=== PATIENT | male | born 1940 | race Hispanic/Latino ===

== ENCOUNTER → 2019-04-01 | Outpatient (CLI) | payer OTHER ==
[~2019-04-01] MED LIST: IOHEXOL 350 MG/ML 100ML INFUS..BTL IV ONE; IOHEXOL-350 50ML VIAL IV ONE
== END | disposition home or self-care (01) ==
LOC: RAH 07:39
PROVIDERS: ATTEND Internal Medicine Cardiovascular Disease
DX: K80.20 Calculus of gallbladder without cholecystitis without obstruction (principal); N32.89 Other specified disorders of bladder; N40.0 Benign prostatic hyperplasia without lower urinary tract symptoms; I70.201 Unspecified atherosclerosis of native arteries of extremities, right leg
CPT/HCPCS: 75635; Q9967 ×2

== ENCOUNTER → 2019-04-15 | Outpatient (CLI) | payer OTHER | END | disposition home or self-care (01) | LOC: SHCH 09:32 → EDUNIT# 10:00 | PROVIDERS: ATTEND Internal Medicine Cardiovascular Disease | DX: I34.0 Nonrheumatic mitral (valve) insufficiency (principal); I25.10 Atherosclerotic heart disease of native coronary artery without angina pectoris | CPT/HCPCS: 93306 ==

== ENCOUNTER 2019-05-06 07:12 | Day surgery (SDC) | payer OTHER ==
[2019-05-04 14:16] VITALS: BP 123/69
[2019-05-04 14:35] LABS: BASOPHILS % (AUTO) 1.2 % (0.0-5.0); EOSINOPHILS % (AUTO) 2.5 % (0.0-8.0); LYMPHOCYTES % (AUTO) 24.8 % (21.0-51.0); MEAN CORPUSCULAR HEMOGLOBIN 31.2 pg (27.0-33.0); MEAN CORPUSCULAR HGB CONC 34.4 g/dL (32.0-36.0); MEAN CORPUSCULAR VOLUME 90.9 fL (79-99); MONOCYTES % (AUTO) 8.1 % (3.0-13.0); NEUTROPHILS % (AUTO) 63.4 % (40.0-77.0); NUCLEATED RED BLOOD CELLS 0.1 % (0.0-0.19); PLATELET COUNT (AUTO) 188 K/uL (130-400); RED BLOOD CELL COUNT(AUTO) 5.18 MIL/uL (4.50-6.20); RED CELL DISTRIBUTION WIDTH 15.9 % (11.0-15.5); WHITE BLOOD COUNT (AUTO) 8.5 K/uL (4.8-10.8)
[2019-05-04 14:41] LABS: APPEARANCE,URINE Clear (CLEAR); BILIRUBIN,URINE Negative (NEGATIVE); COLOR,URINE Yellow (YELLOW); GLUCOSE, URINE (UA) Negative (NEGATIVE); KETONES,URINE Negative (NEGATIVE); LEUKOCYTE ESTERASE ,URINE Negative (NEGATIVE); NITRATE,URINE Negative (NEGATIVE); OCCULT BLOOD,URINE Negative (NEGATIVE); PROTEIN,URINE Negative (NEGATIVE); UROBILINOGEN,URINE 0.2 mg/dL (0.2-1.0)
[2019-05-04 14:46] LABS: CREATININE 1.1 mg/dL (0.5-1.5)
[2019-05-04 14:48] LABS: INR 0.96 (0.85-1.15); PARTIAL THROMBOPLASTIN TIME 28.8 SEC (26.3-35.5); PROTHROMBIN TIME 10.1 SEC (9.6-11.6)
[2019-05-06] VITALS (8 sets, daily range): BP systolic 119–155; BP diastolic 64–93
[~2019-05-06] VITALS: Ht 165.1 cm; Wt 56.9 kg
[~2019-05-06 07:12] MED LIST changes: +ASPI-555 PO; +ESCI5TAB10 PO; -IOHEXOL 350 MG/ML 100ML INFUS..BTL IV ONE; -IOHEXOL-350 50ML VIAL IV ONE; +NITR0.4T50 SL; +SIMV40TA5 PO; +SODIUM CHLORIDE 0.9% 500ML 500 ML IV SCH; +TAMS-1 PO; +TERBINAFINE PO
[2019-05-06] MEDS ORDERED: SODIUM CHLORIDE 0.9% 1000ML 1,000 ML IV ONE (09:32)
[2019-05-06] MEDS ORDERED: NITROGLYCERIN 5 MG/ML 10 ML VIAL IV ONE (14:42)
[2019-05-06] MEDS ORDERED: IOHEXOL 350 MG/ML 100ML INFUS..BTL IV ONE (14:43)
[2019-05-06] MEDS ORDERED: IODIXANOL 320 MG/ML 100 ML VIAL ONE (14:43)
[2019-05-06] MEDS ORDERED: LIDOCAINE HCL 2% 20ML ONE (14:43)
[2019-05-06] MEDS ORDERED: MIDAZOLAM HCL 1 MG/ML 2ML VIAL ONE (15:16)
[2019-05-06] MEDS ORDERED: FENTANYL CITRATE PF 50 MCG/1 ML 2ML VIAL ONE (15:17)
[2019-05-06] MEDS ORDERED: SODIUM CHLORIDE 0.9% 1000ML 1,000 ML IV SCH (15:49)
[2019-05-06] MEDS ORDERED: GLUCAGON 1MG KIT 1 MG ML IM PRN (16:00)
[2019-05-06] MEDS ORDERED: DEXTROSE 50%-WATER 50 ML DISP.SYRIN IV PRN (16:00)
--- NOTE | 2019-05-06 16:15 | NUR ---
PATIENT RETURNED FROM PHARM TECH VIA BED BY HUGH STUBBS PATIENT AAOX3, RESPIRATIONS UNLABORED, VITAL SIGNS STABLE, DENIES PAIN. RIGTH GROIN WITH DSTAT IN PLACE, DRY AND INTACT. SITE/AREA IS SOFT AND NONTENDER. PEDAL PULSES PRESENT WITH DOPPLER.
--- NOTE | 2019-05-06 19:20 | NUR ---
DISCHARGE INSTRUCTIONS PROVIDED TO PATIENT'S DAUGHTER AND PATIENT. FOLLOW UP APPOINTMENTS PROVIDED AND INSTRUCTIONS ON FEMORAL SITE CARE PROVIDED WITH HANDOUTS. PRESCRIPTIONS PROVIDED WELL. ALL QUESTIONS./CONCERNS ADDRESSED.
--- NOTE | 2019-05-06 19:30 | NUR ---
PATIENT DISCHARGED FROM FACILITY VIA WHEELCHAIR AND TAKEN HOME IN PRIVATE VEHICLE BY DAUGHTER.
== END 2019-05-06 19:30 | disposition home or self-care (01) ==
LOC: DAH 07:12
PROVIDERS: ATTEND Internal Medicine Cardiovascular Disease
DX: I25.118 Atherosclerotic heart disease of native coronary artery with other forms of angina pectoris (principal); I77.811 Abdominal aortic ectasia; I70.213 Atherosclerosis of native arteries of extremities with intermittent claudication, bilateral legs; I25.5 Ischemic cardiomyopathy; E78.5 Hyperlipidemia, unspecified; F17.210 Nicotine dependence, cigarettes, uncomplicated; F41.9 Anxiety disorder, unspecified; F32.9 Major depressive disorder, single episode, unspecified; N40.0 Benign prostatic hyperplasia without lower urinary tract symptoms; Z79.82 Long term (current) use of aspirin; Z79.899 Other long term (current) drug therapy; Z72.89 Other problems related to lifestyle; Z79.01 Long term (current) use of anticoagulants; Z83.3 Family history of diabetes mellitus
CPT/HCPCS: 36415; 71045; 75630; 80048; 81003; 85025; 85610; 85730; 93005; 93458; 99156; 99157; A4606; C1894; J1644; J2250; J3010; J3490; J7030; Q9967

== ENCOUNTER 2019-06-15 05:52 | Day surgery (SDC) | payer OTHER ==
[2019-06-11 09:10] VITALS: BP 124/71
[2019-06-11 09:20] LABS: BASOPHILS % (AUTO) 1.2 % (0.0-5.0); EOSINOPHILS % (AUTO) 3.5 % (0.0-8.0); HEMATOCRIT 40.3 % (42-54); LYMPHOCYTES % (AUTO) 23.2 % (21.0-51.0); MEAN CORPUSCULAR HEMOGLOBIN 31.2 pg (27.0-33.0); MEAN CORPUSCULAR HGB CONC 34.3 g/dL (32.0-36.0); MONOCYTES % (AUTO) 8.7 % (3.0-13.0); NEUTROPHILS % (AUTO) 63.4 % (40.0-77.0); NUCLEATED RED BLOOD CELLS 0.1 % (0.0-0.19); PLATELET COUNT (AUTO) 194 K/uL (130-400); RED BLOOD CELL COUNT(AUTO) 4.43 MIL/uL (4.50-6.20); RED CELL DISTRIBUTION WIDTH 15.2 % (11.0-15.5); WHITE BLOOD COUNT (AUTO) 8.3 K/uL (4.8-10.8)
[2019-06-11 09:23] LABS: APPEARANCE,URINE Clear (CLEAR); BILIRUBIN,URINE Negative (NEGATIVE); COLOR,URINE Yellow (YELLOW); GLUCOSE, URINE (UA) Negative (NEGATIVE); KETONES,URINE Negative (NEGATIVE); LEUKOCYTE ESTERASE ,URINE Negative (NEGATIVE); NITRATE,URINE Negative (NEGATIVE); OCCULT BLOOD,URINE Negative (NEGATIVE); PH,URINE 5.5 (5.0-8.0); PROTEIN,URINE Negative (NEGATIVE); UROBILINOGEN,URINE 0.2 mg/dL (0.2-1.0)
[2019-06-11 09:30] LABS: CREATININE 0.9 mg/dL (0.5-1.5); POTASSIUM 4.5 mmol/L (3.5-5.1)
[2019-06-11 09:34] LABS: INR 0.96 (0.85-1.15); PARTIAL THROMBOPLASTIN TIME 27.1 SEC (26.3-35.5); PROTHROMBIN TIME 10.1 SEC (9.6-11.6)
[2019-06-15] VITALS (21 sets, daily range): BP systolic 85–159; BP diastolic 57–88
[~2019-06-15] VITALS: Ht 165.1 cm; Wt 59.1 kg
[~2019-06-15 05:52] MED LIST changes: +CLOP75TA32 PO; +ISOS30TA6 PO; -SODIUM CHLORIDE 0.9% 500ML 500 ML IV SCH; -TERBINAFINE PO
[2019-06-15] MEDS ORDERED: SODIUM CHLORIDE 0.9% 1000ML 1,000 ML IV ONE (06:52)
--- NOTE | 2019-06-15 09:20 | NUR ---
PROCEDURE PT TAKEN TO LITHOPONE MILL WORKER FOR SCHEDULED PROCEDURE. FAMILY AT BEDSIDE
[2019-06-15] MEDS ORDERED: NITROGLYCERIN 5 MG/ML 10 ML VIAL IV ONE (09:34)
[2019-06-15] MEDS ORDERED: HEPARIN SODIUM 1000UNIT/ML 10ML VIAL ONE (09:34)
[2019-06-15] MEDS ORDERED: MIDAZOLAM HCL 1 MG/ML 2ML VIAL ONE (09:35)
[2019-06-15] MEDS ORDERED: LIDOCAINE HCL 2% 20ML ONE (09:35)
[2019-06-15] MEDS ORDERED: IODIXANOL 320 MG/ML 100 ML VIAL ONE (09:35)
[2019-06-15] MEDS ORDERED: FENTANYL CITRATE PF 50 MCG/1 ML 2ML VIAL ONE (09:36)
[2019-06-15] MEDS ORDERED: SODIUM CHLORIDE 0.9% 1000ML 1,000 ML IV SCH (11:09)
[2019-06-15] MEDS ORDERED: GLUCAGON 1MG KIT 1 MG ML IM PRN (11:15)
[2019-06-15] MEDS ORDERED: DEXTROSE 50%-WATER 50 ML DISP.SYRIN IV PRN (11:15)
[2019-06-15] MEDS ORDERED: NITROGLYCERIN 0.4 MG SL TAB SL PRN (11:15)
[2019-06-15] MEDS ORDERED: METOPROLOL TARTRATE 1 MG/ML 5ML VIAL IV PRN (11:15)
[2019-06-15] MEDS ORDERED: ATROPINE SULFATE 0.1 MG/ML 10 ML SYG IVP ONE (12:25)
== END 2019-06-15 16:51 | disposition home or self-care (01) ==
LOC: DAH 05:52
PROVIDERS: ATTEND Internal Medicine Cardiovascular Disease
DX: I70.213 Atherosclerosis of native arteries of extremities with intermittent claudication, bilateral legs (principal); I77.1 Stricture of artery; I25.10 Atherosclerotic heart disease of native coronary artery without angina pectoris; E11.51 Type 2 diabetes mellitus with diabetic peripheral angiopathy without gangrene; E78.5 Hyperlipidemia, unspecified; F41.9 Anxiety disorder, unspecified; F32.9 Major depressive disorder, single episode, unspecified; N40.0 Benign prostatic hyperplasia without lower urinary tract symptoms; I25.5 Ischemic cardiomyopathy; I34.0 Nonrheumatic mitral (valve) insufficiency; Z87.891 Personal history of nicotine dependence; Z79.899 Other long term (current) drug therapy; Z72.89 Other problems related to lifestyle; Z83.3 Family history of diabetes mellitus; Z79.01 Long term (current) use of anticoagulants
CPT/HCPCS: 36215; 36415; 37221; 37236; 71045; 75716; 80048; 81003; 85025; 85610; 85730; 93005; A4215; A4216; A4221; A4222; A4223 ×2; A4606; A4657; A4663; A6402; C1725; C1769; C1874; C1876; C1893 ×2; C1894 ×2; J0461; J1644 ×2; J2250; J3010; J3490 ×2; J7030; Q9967; 99156; 99157

== ENCOUNTER → 2019-10-14 | Outpatient (CLI) | payer OTHER ==
[~2019-10-14] MED LIST changes: +CITA10TA7 PO; -ESCI5TAB10 PO; +IOHEXOL-350 50ML VIAL IV ONE; -NITR0.4T50 SL; +SIMV-46 PO; -SIMV40TA5 PO
== END | disposition home or self-care (01) ==
LOC: RAH 07:33
PROVIDERS: ATTEND Internal Medicine Cardiovascular Disease
DX: I65.21 Occlusion and stenosis of right carotid artery (principal)
CPT/HCPCS: 70498; Q9967

== ENCOUNTER → 2019-10-17 | Outpatient (CLI) | payer OTHER ==
[~2019-10-17] MED LIST changes: -IOHEXOL-350 50ML VIAL IV ONE
== END | disposition home or self-care (01) ==
LOC: SHCH 10:58
PROVIDERS: ATTEND Internal Medicine Cardiovascular Disease
DX: I08.0 Rheumatic disorders of both mitral and aortic valves (principal)
CPT/HCPCS: 93306; 93356

== ENCOUNTER 2020-01-01 11:00 | Inpatient (IN) | payer OTHER ==
[~2020-01-01] VITALS: Ht 165.1 cm; Wt 56.8 kg
[2020-01-01 10:46] LABS: BASOPHILS % (AUTO) 1.3 % (0.0-5.0); EOSINOPHILS % (AUTO) 4.7 % (0.0-8.0); HEMATOCRIT 37.4 % (42-54); LYMPHOCYTES % (AUTO) 24.9 % (21.0-51.0); MEAN CORPUSCULAR HGB CONC 31.8 g/dL (32.0-36.0); MEAN CORPUSCULAR VOLUME 84.8 fL (79-99); MONOCYTES % (AUTO) 9.8 % (3.0-13.0); PLATELET COUNT (AUTO) 182 K/uL (130-400); RED BLOOD CELL COUNT(AUTO) 4.41 MIL/uL (4.50-6.20); RED CELL DISTRIBUTION WIDTH 22.1 % (11.0-15.5); WHITE BLOOD COUNT (AUTO) 8.6 K/uL (4.8-10.8)
[2020-01-01 10:59] LABS: HEMOGLOBIN A1C 6.1 % (4.0-6.0)
[2020-01-01 11:00] LABS: INR 0.94 (0.85-1.15); PARTIAL THROMBOPLASTIN TIME 27.1 SEC (26.3-35.5); PROTHROMBIN TIME 10.2 SEC (9.6-11.6)
[~2020-01-01 11:00] MED LIST changes: -ASPI-555 PO; +ASPI-556 PO
[2020-01-01 11:02] LABS: ALBUMIN 3.9 g/dL (3.5-5.0); BILIRUBIN,TOTAL 0.3 mg/dL (0.2-1.0); POTASSIUM 4.6 mmol/L (3.5-5.1); TOTAL PROTEIN, SERUM 7.2 g/dL (6.0-8.3)
[2020-01-01 11:36] VITALS: BP 116/58
[2020-01-01] MEDS ORDERED: METO25TA6 PO (12:15)
[2020-01-01] MEDS ORDERED: SIMV-46 PO (12:15)
[2020-01-01] MEDS ORDERED: FERS325 PO (12:15)
[2020-01-01] MEDS ORDERED: LISI2.5T2 PO (12:15)
[2020-01-01] MEDS ORDERED: FURO20TA4 PO (12:15)
[2020-01-01] MEDS ORDERED: CETI10TA57 PO (12:15)
[2020-01-04] MEDS ORDERED: CEFUROXIME SODIUM 1.5 GM VIAL IVP SCH (06:00)
[2020-01-05] VITALS (36 sets, daily range): BP systolic 113–154; BP diastolic 52–76
[2020-01-05] MEDS ORDERED: LACTATED RINGERS 1000ML 1,000 ML IV ONE (09:22)
[2020-01-05] MEDS ORDERED: ESCI5TAB10 PO (09:48)
[2020-01-05] MEDS ORDERED: CEFAZOLIN SODIUM 1 GM VIAL ONE (11:41)
[2020-01-05] MEDS ORDERED: DEXAMETHASONE SOD PHOSPHATE 10MG/ML 1ML VIAL ONE (13:20)
[2020-01-05] MEDS ORDERED: NEOSTIGMINE 5MG/5ML SYR IV ONE (13:20)
[2020-01-05] MEDS ORDERED: SUCCINYLCHOLINE 200MG/10ML SYR ONE (13:20)
[2020-01-05] MEDS ORDERED: LIDOCAINE PF 2% 5ML ABBOJECT ONE (13:20)
[2020-01-05] MEDS ORDERED: ROCURONIUM 10MG/1ML SYR 10 MG/ML ML ONE (13:20)
[2020-01-05] MEDS ORDERED: GLYCOPYRROLATE 1 MG/5 ML SYRINGE ONE (13:20)
[2020-01-05] MEDS ORDERED: MIDAZOLAM HCL 1 MG/ML 2ML VIAL ONE (13:20)
[2020-01-05] MEDS ORDERED: PROPOFOL 10 MG/ML 20ML VIAL IV ONE (13:20)
[2020-01-05] MEDS ORDERED: ONDANSETRON HCL 4 MG/2 ML VIAL ONE (13:20)
[2020-01-05] MEDS ORDERED: FENTANYL CITRATE PF 50 MCG/1 ML 2ML VIAL ONE (13:21)
[2020-01-05] MEDS ORDERED: ACETAMINOPHEN 325 MG TAB PO PRN (15:30)
[2020-01-05] MEDS ORDERED: TRAMADOL HCL 50 MG TABLET PO PRN ×2 (15:30)
--- NOTE | 2020-01-05 17:50 | NUR ---
PT. C/O THAT HE IS UNABLE TO VOID AND VERBALIZES C/O BLADDER DISCOMFORT. NOTICED BLADDER EXTREMELY DISTENDED, DR. LYNN NOTIFIED,ORDER FOR IN AND OUT CATH RECEIVED Addendum: 01/05/20 at 1828 by RACH MOLINA RN RN Amended: Links added.
--- NOTE | 2020-01-05 17:55 | NUR ---
IN AND OUT CATH PROCEDURE RENDERED UNDER STERILE TECHNIQUE, NO TRAUMA. 800 ML CLEAR YELLOW URINE COLLECTED.PT DENIES C/O BLADDER DISCOMFORT, NO BLADDER DISTENTION NOTED. CATHETER DC'D POST DRAINAGE Addendum: 01/05/20 at 1828 by RACH MOLINA RN RN Amended: Links added.
[2020-01-05] MEDS ORDERED: NON-FORMULARY MEDICATION 1 EACH (Simvastatin 40 MG) PO SCH (21:00)
[2020-01-05] MEDS: SIMVASTATIN 20 MG TABLET PO SCH (21:00)
--- NOTE | 2020-01-05 21:15 | NUR ---
PATIENT ARRIVED ON UNIT. A/OX3. ABLE TO ANSWER APPROPRIATELY. SLIGHT SWELLING TO R THROAT. DRESSING CDI. THROAT SOFT. BP WNL. PATIENT REFUSED NIGHT MEDICATIONS DUE TO NOT BEING ABLE TO SWALLOW NORMALLY. COUGHS WITH FLUIDS. PATIENT DENIES CHEST PAIN OR SOB. RESTING IN BED. NEURO CHECKS DONE DURING FITNESS SPECIALIST. WILL CONTINUE TO MONITOR
[2020-01-05] MEDS: CEFAZOLIN SODIUM 1 GM VIAL IVP SCH (23:14)
[2020-01-05] MEDS: METOPROLOL TARTRATE 25 MG TAB PO SCH (23:28)
[2020-01-05] MEDS: KETOROLAC TROMETHAMINE 15MG/ML IV SCH (23:43)
[2020-01-06 03:24] VITALS: BP 122/61
[2020-01-06 04:19] LABS: HEMATOCRIT 34.7 % (42-54); MEAN CORPUSCULAR HEMOGLOBIN 28.1 pg (27.0-33.0); MEAN CORPUSCULAR HGB CONC 33.1 g/dL (32.0-36.0); MEAN CORPUSCULAR VOLUME 84.8 fL (79-99); RED BLOOD CELL COUNT(AUTO) 4.09 MIL/uL (4.50-6.20); RED CELL DISTRIBUTION WIDTH 21.2 % (11.0-15.5); WHITE BLOOD COUNT (AUTO) 13.9 K/uL (4.8-10.8)
[2020-01-06 04:34] LABS: CREATININE 1.2 mg/dL (0.5-1.5); POTASSIUM 4.3 mmol/L (3.5-5.1)
[2020-01-06] MEDS: CEFAZOLIN SODIUM 1 GM VIAL IVP SCH ×2 (06:06→14:43)
[2020-01-06] MEDS: KETOROLAC TROMETHAMINE 15MG/ML IV SCH ×4 (06:06→23:23)
--- NOTE | 2020-01-06 06:30 | NUR ---
INFORMED DR LYNN ABOUT PATIENT'S SWELLING TO NECK HAS WORSENED. ALSO INFORMED PATIENT HAS NOT BEEN ABLE TO VOID THIS MORNING. HAS BEEN TRYING FOR AN HOUR. NO NEW ORDERS. DR STATED HE WILL SEE PATIENT.
--- NOTE | 2020-01-06 07:53 | NUR ---
REPORTED TO DR. LYNN THRU ALETA RN THAT PATIENT COMPLAINS OF HOARSENESS AND DYSPHAGIA. DR. LYNN IS ALREADY AWARE OF THE NECK SWELLING THAT WAS RELAYED TO HIM CECI AREVALO RN. PATIENT ALSO CANNOT URINATE. ORDERS RECEIVED TO DO BLADDER SCAN AND STRAIGHT CATH IF RESULT'S OVER 600ML. ULTRASOUND OF NECK ALSO ORDERED TO ASSESS FOR HEMATOMA AND CAROTID FLOW. PATIENT DOES NOT C/O SHORTNESS OF BREATH NOR PAIN. WILL KEEP PATIENT ON O2 PER NASAL CANNULA FOR COMFORT REQUESTED. WILL CONTINUE TO MONITOR.
--- NOTE | 2020-01-06 08:00 | NUR ---
ASSESSMENT NOTICABLE NECK SWELLING FROM ANTERIOR TO RIGHT SIDE. DR. LYNN IS AWARE. Addendum: 01/06/20 at 0911 by POLINA HOUSTON RN RN Amended: Links added.
--- NOTE | 2020-01-06 08:33 | NUR ---
BLADDER SCAN SHOWED >800ML. IN AND OUT CATHETERIZATION DONE. YIELDED 1200ML URINE OUTPUT. BLADDER DISTENSION RESOLVED. PATIENT VOICED HE FEELS MUCH BETTER.
[2020-01-06] MEDS: METOPROLOL TARTRATE 25 MG TAB PO SCH ×3 (09:00→20:07)
[2020-01-06] MEDS: TAMSULOSIN HCL 0.4 MG CAP.ER.24H PO SCH ×2 (09:00→10:00)
[2020-01-06] MEDS: FERROUS SULFATE 325 MG TABLET.DR PO SCH ×2 (09:00→09:59)
[2020-01-06] MEDS: FUROSEMIDE 20 MG TABLET PO SCH ×2 (09:00→10:00)
[2020-01-06] MEDS: CITALOPRAM 20 MG TABLET PO SCH ×2 (09:00→10:00)
[2020-01-06] MEDS: CLOPIDOGREL BISULFATE 75 MG TAB PO SCH (09:00)
[2020-01-06] MEDS: ASPIRIN 81 MG EC TAB PO SCH (09:00)
[2020-01-06] MEDS: LISINOPRIL 2.5 MG TABLET PO SCH ×2 (09:00→10:00)
[2020-01-06] MEDS: CETIRIZINE HCL 5 MG TABLET PO SCH ×2 (09:00→10:00)
--- NOTE | 2020-01-06 09:00 | NUR ---
INITIAL CM NOTE MET W PATIENT AT BEDSIDE STILL VERY HOARSE. STATES AXEL PHAN WILL PROVIDE TRANSPORT HOME, LIVES WITH HIM. HAS PROVIDER HOURS 20+ PER WEEK- USES A CANE AT TIMES, STILL DRIVES, ALTHOUGH DAUGHTER PROVIDES MOST HELP, IS INDPENDENT OF ADLS, DCP IS HOME. REQUESTED CM TO ALL DAUGHTER HIS VOICE WAS HOARSE- CALL TO NUMBER NO ANSWER. PT STATES FEELS SAFE TO RETURN HOME, NO DC NEEDS ANTICIPATED Addendum: 01/07/20 at 1023 by MARLO ASIF RN CM Amended: Links added.
[2020-01-06 11:00] VITALS: BP 141/52
[2020-01-06] MEDS ORDERED: TAMSULOSIN HCL 0.4 MG CAP.ER.24H PO SCH (12:00)
--- NOTE | 2020-01-06 12:21 | NUR ---
ATTEMPTED TO START DIET(CLEAR LIQUIDS) ON PATIENT ORDERED BY DR. LYNN HOWEVER PATIENT STARTED COUGHING AND EXPECTORATING MUCUS. ENCOURAGED USE OF INCENTIVE SPIROMETER TO FACILITATE DRAINAGE WELL. INFORMED PATIENT THAT WE WILL KEEP HIM NPO FOR NOW.
--- NOTE | 2020-01-06 14:29 | NUR ---
STATUS STILL WAITING FOR DR. LYNN TO SEE PATIENT. PATIENT DENIES PAIN. NO SOB EITHER. O2 MAINTAINED.
[2020-01-06 16:00] VITALS: BP 140/57
[2020-01-06 19:00] VITALS: BP 147/67
[2020-01-06] MEDS: SIMVASTATIN 20 MG TABLET PO SCH (20:07)
--- NOTE | 2020-01-06 20:08 | NUR ---
Assessment Patient stable, Alert, Oriented X3, sitting at bedside, call light within reach. Patient voices unable to swallow Lopressor RX S/P Right Carotid Stenosis surgery. Notified DR. Figueroa, Ok to hold Lopressor. BP128/73, HR 76, SPO2 100% RR 18. New orders of Carotid US received and ordered.
[2020-01-07] VITALS (7 sets, daily range): BP systolic 136–156; BP diastolic 62–74
--- NOTE | 2020-01-07 06:45 | NUR ---
Bladder scanner done at 6am due to patient not voiding all night. Bladder scanner indicates only 2mls of urine retention. Nurse finding given during report LG. Patient has been having minimal ice chips during the shift and complains of difficultly swallowing ice. Patient stable, alert, oriented X3, call light within reach, sitting at bedside. Patient voices no concerns at this time.
--- NOTE | 2020-01-07 07:50 | NUR ---
ASSESSMENT PT IS AAOX3 DENIES CP DENIES SOB DENIES NV. SITTING UPRIGHT IN BED. NOTED INCISION TO RIGHT NECK OPEN TO AIR CLEAN DRY AND INTACT. PATIENT HAS HOARSE VOICE AND STATES HE HAS DIFFICULTY SWALLOWING. WHEN PATIENT ATTEMPTS TO DRINK WATER, HE COUGHS AND SPITS UP BROWN/REDDISH SPUTUM. PATIENT STATES HE DOESN'T WANT TO TAKE HIS MEDICATION PILLS YET. WILL WAIT FOR MD TO ROUND.
--- NOTE | 2020-01-07 08:02 | NUR ---
DR DIEGO DICKEY SAW PATIENT, ORDERS RECEIVED
[2020-01-07] MEDS: CETIRIZINE HCL 5 MG TABLET PO SCH (09:00)
[2020-01-07] MEDS: CLOPIDOGREL BISULFATE 75 MG TAB PO SCH (09:00)
[2020-01-07] MEDS: METOPROLOL TARTRATE 25 MG TAB PO SCH ×2 (09:00→20:16)
[2020-01-07] MEDS: FERROUS SULFATE 325 MG TABLET.DR PO SCH (09:00)
[2020-01-07] MEDS: TAMSULOSIN HCL 0.4 MG CAP.ER.24H PO SCH (09:00)
[2020-01-07] MEDS: ASPIRIN 81 MG EC TAB PO SCH (09:00)
[2020-01-07] MEDS: CITALOPRAM 20 MG TABLET PO SCH (09:00)
[2020-01-07] MEDS: FUROSEMIDE 20 MG TABLET PO SCH (09:00)
[2020-01-07] MEDS: LISINOPRIL 2.5 MG TABLET PO SCH (09:00)
--- NOTE | 2020-01-07 10:45 | NUR ---
DYSPHAGIA EVAL COMPLETED. +S/S OF ASPIRATION. RECOMMEND SHORT TERM ALTERNATE MEANS OF NUTRITION/HYDRATION OTHER THAN NG TUBE. BASEBOARD HEATING INSTALLER EDUCATED PATIENT ON RISKS AND CONSEQUENCES OF ASPIRATION. BASEBOARD HEATING INSTALLER ATTEMPTED TO CALL (NO ANSWER) DAUGHTER, EMILIE, TO REVIEW RESULTS. BASEBOARD HEATING INSTALLER WILL FOLLOW Pt FOR SKILLED SPEECH THERAPY SWALLOWING GOALS AND RE-EVALUATION WITHIN A FEW DAYS. RECOMMENDATIONS: DYSPHAGIA THERAPY 3-5XWEEK TO INCREASE ORAL MOTOR STRENGTH AND PHARYNGEAL SWALLOW: LTG#1: Pt WILL TOLERATE LEAST RESTRICTIVE DIET TO MEET NUTRITION/HYDRATION WITH NO S/S OF ASPIRATION. LTG#2: SKILLED EDUCATION Pt/FAMILY/STAFF STG#1: Pt WILL PARTICIPATE IN LARYNGEAL ELEVATION/EXCURSION EXERCISES WITH 80% ACCURACY. STG#2: Pt WILL PARTICIPATE IN TONGUE BASE RETRACTION EXERCISES WITH 80% ACCURACY. STG#3: Pt WILL PARTICIPATE IN ORAL MOTOR EXERCISES WITH 80% ACCURACY. STG#4: Pt WILL TOLERATE THERAPEUTIC TRIALS OF THIN LIQUID VIA SPOON WITH NO OVERT S/S OF ASPIRATION. STG#5: Pt WILL BE ABLE TO PARTICIPATE IN MBSS AFTER 2-4 WEEKS OF THERAPEUTIC INTERVENTION. STG#6: SKILLED EDUCATION Pt/FAMILY/STAFF. BASEBOARD HEATING INSTALLER COORDINATED CARE WITH [place]. Addendum: 01/07/[address]ARGARITA BOOTH Amended: Links added.
[2020-01-07] MEDS ORDERED: CLINIMIX E 4.25%-5% SOLUTION 2,000 ML IV SCH (11:30)
--- NOTE | 2020-01-07 13:34 | NUR ---
CT NECK SOFT TISSUE RESULTS REPORT TO DR WAGNER VIA PHONE ORDERS TO CONTINUE WITH CURRENT PLAN OF CARE
[2020-01-07] MEDS: SIMVASTATIN 20 MG TABLET PO SCH (20:16)
[2020-01-07] MEDS: ENALAPRILAT DIHYDRATE 1.25MG/ML 1ML VIAL IV PRN (20:48)
[2020-01-08] VITALS (31 sets, daily range): BP systolic 125–166; BP diastolic 62–91
--- NOTE | 2020-01-08 07:25 | NUR ---
ASSESSMENT ENCOUNTERED PT A&OX3, CALM COOPERATIVE AND DOES NOT APPEAR TO BE IN ANY DISTRESS NOR ANY NEURO DEFICITS PRESENT. PT DENIES PAIN ,SOB, NAUSEA BUT DOES C/O DIFFICULTY SWALLOWING. INCISION SITE TO RIJ, DRY AND INTACT, PT IS EXPECTORATING BLOOD TINGED SPUTUM. PT IS NPO. CALL LIGHT WITHIN REACH.
[2020-01-08] MEDS: CITALOPRAM 20 MG TABLET PO SCH (09:00)
[2020-01-08] MEDS: METOPROLOL TARTRATE 25 MG TAB PO SCH ×2 (09:00→19:52)
[2020-01-08] MEDS: TAMSULOSIN HCL 0.4 MG CAP.ER.24H PO SCH (09:00)
[2020-01-08] MEDS: FUROSEMIDE 20 MG TABLET PO SCH (09:00)
[2020-01-08] MEDS: CLOPIDOGREL BISULFATE 75 MG TAB PO SCH (09:00)
[2020-01-08] MEDS: ASPIRIN 81 MG EC TAB PO SCH (09:00)
[2020-01-08] MEDS: LISINOPRIL 2.5 MG TABLET PO SCH (09:00)
[2020-01-08] MEDS: CETIRIZINE HCL 5 MG TABLET PO SCH (09:00)
[2020-01-08] MEDS: FERROUS SULFATE 325 MG TABLET.DR PO SCH (09:00)
[2020-01-08 09:47] LABS: HEMATOCRIT 30.1 % (42-54); MEAN CORPUSCULAR HEMOGLOBIN 27.4 pg (27.0-33.0); MEAN CORPUSCULAR HGB CONC 32.2 g/dL (32.0-36.0); RED BLOOD CELL COUNT(AUTO) 3.54 MIL/uL (4.50-6.20); WHITE BLOOD COUNT (AUTO) 8.7 K/uL (4.8-10.8)
[2020-01-08 09:55] LABS: CREATININE 0.7 mg/dL (0.5-1.5); POTASSIUM 3.6 mmol/L (3.5-5.1)
[2020-01-08 09:57] LABS: INR 0.92 (0.85-1.15); PARTIAL THROMBOPLASTIN TIME 29.6 SEC (26.3-35.5)
--- NOTE | 2020-01-08 10:00 | NUR ---
HOLD TREATMENT COMPLETED Pt HEADING TO SURGERY. HOLD TREATMENT FOR TODAY. CAR BUILDER WILL CONTINUE TO FOLLOW Pt FOR SKILLED SPEECH THERAPY TO ADDRESS SWALLOWING GOALS. CAR BUILDER COORDINATED WITH NURSE FREEDMAN. Addendum: 01/08/[address] MARGARITA BOOTH Amended: Links added.
[2020-01-08] MEDS ORDERED: SODIUM CHLORIDE 0.9% 1000ML 1,000 ML IV ONE (10:22)
[2020-01-08] MEDS ORDERED: SUCCINYLCHOLINE CHLORIDE 20 MG/ML 10 ML VIAL ONE (10:23)
[2020-01-08] MEDS ORDERED: PROPOFOL 10 MG/ML 20ML VIAL IV ONE (10:23)
[2020-01-08] MEDS ORDERED: LIDOCAINE PF 2% 5ML ABBOJECT ONE (10:23)
[2020-01-08] MEDS ORDERED: MIDAZOLAM HCL 1 MG/ML 2ML VIAL ONE (10:25)
[2020-01-08] MEDS ORDERED: ROCURONIUM 10MG/1ML SYR 10 MG/ML ML ONE (10:25)
[2020-01-08] MEDS ORDERED: KETAMINE 50MG/ML SYRINGE 50 MG/ML DISP.SYRIN IV ONE ×2 (10:55→10:56)
[2020-01-08] MEDS: KETOROLAC TROMETHAMINE 15MG/ML IV SCH ×2 (14:33→20:49)
[2020-01-08] MEDS ORDERED: CLINIMIX E 4.25%-5% SOLUTION 2,000 ML IV SCH (15:45)
[2020-01-08] MEDS: SIMVASTATIN 20 MG TABLET PO SCH (19:52)
[2020-01-09] VITALS (15 sets, daily range): BP systolic 129–161; BP diastolic 67–85
[2020-01-09] MEDS: KETOROLAC TROMETHAMINE 15MG/ML IV SCH ×4 (03:17→20:01)
[2020-01-09 03:47] LABS: MEAN CORPUSCULAR HEMOGLOBIN 28.3 pg (27.0-33.0); MEAN CORPUSCULAR HGB CONC 33.4 g/dL (32.0-36.0); MEAN CORPUSCULAR VOLUME 84.5 fL (79-99); RED BLOOD CELL COUNT(AUTO) 3.43 MIL/uL (4.50-6.20); RED CELL DISTRIBUTION WIDTH 19.7 % (11.0-15.5); WHITE BLOOD COUNT (AUTO) 8.8 K/uL (4.8-10.8)
[2020-01-09 04:01] LABS: CREATININE 0.8 mg/dL (0.5-1.5); POTASSIUM 4.1 mmol/L (3.5-5.1)
[2020-01-09] MEDS: CITALOPRAM 20 MG TABLET PO SCH (09:00)
[2020-01-09] MEDS: FERROUS SULFATE 325 MG TABLET.DR PO SCH (09:00)
[2020-01-09] MEDS: CLOPIDOGREL BISULFATE 75 MG TAB PO SCH (09:00)
[2020-01-09] MEDS: CETIRIZINE HCL 5 MG TABLET PO SCH (09:00)
[2020-01-09] MEDS: ASPIRIN 81 MG EC TAB PO SCH (09:00)
[2020-01-09] MEDS: TAMSULOSIN HCL 0.4 MG CAP.ER.24H PO SCH (09:00)
[2020-01-09] MEDS: LISINOPRIL 2.5 MG TABLET PO SCH (09:00)
[2020-01-09] MEDS: METOPROLOL TARTRATE 25 MG TAB PO SCH ×2 (09:00→20:02)
[2020-01-09] MEDS: FUROSEMIDE 20 MG TABLET PO SCH (09:00)
[2020-01-09] MEDS: ASPIRIN 300 MG SUPPOSITORY PR SCH (14:02)
--- NOTE | 2020-01-09 18:09 | NUR ---
Pt was transferred to room 423, tele pack placed on pt, pt aox4, NATALIA drain removed at approximately 1130, dressing currently c/d/i w/ 4x4 and tegaderm on site. Addendum: 01/09/20 at 1813 by PABLITO ORTEZ RN RN Pt endorsed to Lucille.
--- NOTE | 2020-01-09 19:25 | NUR ---
PM Assessment Received pt watching TV noted able to suction himself, claimed still having a lot of secretions noted thin white, on PPN at 60cc/hr, routine assessment done, plan of care discuss made aware to remain NPO as he is still pending speech therapy. Per pt stated last BM was 01/05/2020 as claimed he has not been eating since then, denies any discomfort.
[2020-01-09] MEDS ORDERED: CLINIMIX E 4.25%-5% SOLUTION 2,000 ML IV SCH (20:00)
[2020-01-09] MEDS: SIMVASTATIN 20 MG TABLET PO SCH (20:02)
[2020-01-10] VITALS (7 sets, daily range): BP systolic 112–163; BP diastolic 55–93
[2020-01-10] MEDS: ENALAPRILAT DIHYDRATE 1.25MG/ML 1ML VIAL IV PRN (04:19)
[2020-01-10] MEDS: TAMSULOSIN HCL 0.4 MG CAP.ER.24H PO SCH (09:00)
[2020-01-10] MEDS: ASPIRIN 81 MG EC TAB PO SCH (09:00)
[2020-01-10] MEDS: CLOPIDOGREL BISULFATE 75 MG TAB PO SCH (09:00)
[2020-01-10] MEDS: CITALOPRAM 20 MG TABLET PO SCH (09:00)
[2020-01-10] MEDS: CETIRIZINE HCL 5 MG TABLET PO SCH (09:00)
[2020-01-10] MEDS: LISINOPRIL 2.5 MG TABLET PO SCH (09:00)
[2020-01-10] MEDS: FERROUS SULFATE 325 MG TABLET.DR PO SCH (09:00)
[2020-01-10] MEDS: METOPROLOL TARTRATE 25 MG TAB PO SCH ×3 (09:00→20:13)
[2020-01-10] MEDS: ASPIRIN 300 MG SUPPOSITORY PR SCH (09:00)
[2020-01-10] MEDS: FUROSEMIDE 20 MG TABLET PO SCH (09:00)
[2020-01-10] MEDS: SIMVASTATIN 20 MG TABLET PO SCH ×2 (20:11→20:13)
[2020-01-10] MEDS ORDERED: CLINIMIX E 4.25%-5% SOLUTION 2,000 ML IV SCH (21:00)
--- NOTE | 2020-01-11 00:31 | NUR ---
BLADDER DISTENTION PATIENT FC DC'D TODAY. PATIENT HAD ALREADY VOIDED IN URINAL. PATIENT STARTED COMPLAINING OF TROUBLE URINATING. BLADDER SCAN DONE THAT SHOWED 800ML IN BLADDER. DR. LYNN PAGED FOR FURTHER ORDERS. PATIENT IS NOT IN DISTRESS JUST VOICES SOME DISCOMFORT. VOICES HAS HAD TROUBLE URINATING IN THE PAST.
[2020-01-11 03:00] VITALS: BP 140/70
[2020-01-11 08:14] VITALS: BP 138/74
[2020-01-11 11:47] VITALS: BP 109/63
--- NOTE | 2020-01-11 11:50 | NUR ---
DYSPHAGIA EVAL COMPLETED +S/S OF ASPIRATION AT THIS TIME. RECOMMEND PUREED, HONEY THICK LIQUIDS VIA SPOON ONLY, PILLS CRUSHED WITH PUDDING ONLY TOLERATED. STRICT COMPENSATORY STRATEGIES: SUPRAGLOTTIC SWALLOWS, SMALL BITES/SIPS, SLOW RATE OF P.O. INTAKE, FULLY ALERT DURING P.O. INTAKE TO FOLLOW COMPENSATORY STRATEGIES FOR SAFE SWALLOWS. METAL CUT OFF SAW TENDER EDUCATED PATIENT ON RISKS AND CONSEQUENCES OF ASPIRATION. METAL CUT OFF SAW TENDER WILL FOLLOW Pt FOR SKILLED SPEECH THERAPY SWALLOWING GOALS DURING LENGTH OF STAY IN THE HOSPITAL. RECOMMENDATIONS: DYSPHAGIA THERAPY 3-5XWEEK TO INCREASE ORAL MOTOR STRENGTH AND PHARYNGEAL SWALLOW: LTG#1: Pt WILL TOLERATE LEAST RESTRICTIVE DIET TO MEET NUTRITION/HYDRATION WITH NO S/S OF ASPIRATION. LTG#2: SKILLED EDUCATION Pt/FAMILY/STAFF STG#1: Pt WILL PARTICIPATE IN LARYNGEAL ELEVATION/EXCURSION EXERCISES WITH 80% ACCURACY. STG#2: Pt WILL PARTICIPATE IN TONGUE BASE RETRACTION EXERCISES WITH 80% ACCURACY. STG#3: Pt WILL PARTICIPATE IN ORAL MOTOR EXERCISES WITH 80% ACCURACY. STG#4: Pt WILL TOLERATE THERAPEUTIC TRIALS OF NECTAR THICK LIQUIDS WITH NO OVERT S/S OF ASPIRATION. STG#5: Pt WILL BE ABLE TO PARTICIPATE IN MBSS AFTER 2-4 WEEKS OF THERAPEUTIC INTERVENTION. STG#6: SKILLED EDUCATION Pt/FAMILY/STAFF. METAL CUT OFF SAW TENDER COORDINATED CARE WITH NURSE GLEASON. Addendum: 01/11/[address]ARGARITA BOOTH Amended: Links added.
[2020-01-11] MEDS: TAMSULOSIN HCL 0.4 MG CAP.ER.24H PO SCH ×2 (12:00→16:01)
[2020-01-11] MEDS: FERROUS SULFATE 325 MG TABLET.DR PO SCH (16:00)
[2020-01-11] MEDS: FUROSEMIDE 20 MG TABLET PO SCH (16:01)
[2020-01-11] MEDS: CITALOPRAM 20 MG TABLET PO SCH (16:01)
[2020-01-11] MEDS: METOPROLOL TARTRATE 25 MG TAB PO SCH ×2 (16:02→20:58)
[2020-01-11] MEDS: CETIRIZINE HCL 5 MG TABLET PO SCH (16:02)
--- NOTE | 2020-01-11 16:10 | NUR ---
Nutrition Intervention: Nutrition screen based on LOS x 6 days. Pt. asleep during RD visit. Pt. S/P Right CEA(01/05/20) and S/P Evacuation of hematoma to right side of neck(01/08/2020). Pt. started on Heart Healthy Pureed diet, honey thick liquids for dinner. Pt. NPOx4 days during RD visit. Pt. on PPN with Clinimix 4.25/5@60ml/hr which provides 490kcal, 61gm Pro and 1440ml volume. Labs reviewed(BG 129, Alb 3.9). SR-19, neck incision. LBM: 01/05/2020. BMI: 21, underweight for age. S/P Dysphagia re-eval- FIELD RECRUITER rec. Pureed, honey thick liquids. Recommendations: 1) Rec. Ensure QD with B'fast meal. 2) Rec. discontinue PPN when p.o. intake >50%. 3) Continue to monitor pt's nutritional status. 4) Consult RD as nutrition concerns arise. Addendum: 01/11/20 at [address] Amended: Links added.
[2020-01-11 16:24] VITALS: BP 124/68
[2020-01-11 20:00] VITALS: BP 100/50
[2020-01-11] MEDS: SIMVASTATIN 20 MG TABLET PO SCH (20:04)
[2020-01-11] MEDS: ATORVASTATIN CALCIUM 40 MG TABLET PO SCH (20:58)
[2020-01-11 23:57] VITALS: BP 106/56
[2020-01-12] VITALS (7 sets, daily range): BP systolic 82–144; BP diastolic 41–61
--- NOTE | 2020-01-12 08:10 | NUR ---
SWALLOWING TREATMENT PERFORMED TOTER COORDINATED WITH NURSE GLEASON. PER NURSE, Pt IS TOLERATING DIET WITH NO OVERT S/S OF ASPIRATION. Pt CURRENTLY ON PUREED AND HONEY THICK LIQUIDS AND STILL RECEIVING PPN. TOTER EDUCATED Pt AND REVIEWED COMPENSATORY STRATEGIES IN PLACE TO AVOID ASPIRATION. Pt VERBALIZED UNDERSTANDING. Pt PARTICIPATED IN THERAPEUTIC TRIALS OF SUPRAGLOTTIC SWALLOWS WITH NO S/S OF ASPIRATION WITH PUREED AND HONEY THICK LIQUIDS. TOTER WILL CONTINUE TO FOLLOW Pt AND ADDRESS SWALLOWING GOALS. Addendum: 01/12/[address]ARGARITA BOOTH Amended: Links added.
[2020-01-12] MEDS: TAMSULOSIN HCL 0.4 MG CAP.ER.24H PO SCH ×2 (09:00→09:50)
[2020-01-12] MEDS: FERROUS SULFATE 325 MG TABLET.DR PO SCH (09:49)
[2020-01-12] MEDS: CITALOPRAM 20 MG TABLET PO SCH (09:49)
[2020-01-12] MEDS: CETIRIZINE HCL 5 MG TABLET PO SCH (09:49)
[2020-01-12] MEDS: ASPIRIN 325MG EC TAB 325 MG TABLET.DR PO SCH (09:50)
[2020-01-12] MEDS: METOPROLOL TARTRATE 25 MG TAB PO SCH ×2 (09:50→21:42)
[2020-01-12] MEDS: FUROSEMIDE 20 MG TABLET PO SCH (09:50)
[2020-01-12] MEDS ORDERED: PROCALAMINE IV SOLUTION 1,000 ML IV SCH (20:15)
[2020-01-12] MEDS: SIMVASTATIN 20 MG TABLET PO SCH (21:42)
[2020-01-12] MEDS: ATORVASTATIN CALCIUM 40 MG TABLET PO SCH (21:42)
[2020-01-13 03:40] VITALS: BP 119/52
--- NOTE | 2020-01-13 05:26 | NUR ---
Patient alert and oriented. No chest pain or sob. Using Incentive Spirometer, reaches 750. Has productive cough. R neck incision without s/s of infection. Patient states he still has trouble swallowing. Domingo catheter in place. Bladder training.
[2020-01-13 08:29] VITALS: BP 109/66
[2020-01-13] MEDS: TAMSULOSIN HCL 0.4 MG CAP.ER.24H PO SCH ×2 (09:00→10:38)
[2020-01-13] MEDS: CETIRIZINE HCL 5 MG TABLET PO SCH (10:36)
[2020-01-13] MEDS: FUROSEMIDE 20 MG TABLET PO SCH (10:37)
[2020-01-13] MEDS: FERROUS SULFATE 325 MG TABLET.DR PO SCH (10:37)
[2020-01-13] MEDS: ASPIRIN 325MG EC TAB 325 MG TABLET.DR PO SCH (10:37)
[2020-01-13] MEDS: CITALOPRAM 20 MG TABLET PO SCH (10:37)
[2020-01-13] MEDS: METOPROLOL TARTRATE 25 MG TAB PO SCH ×2 (10:38→20:13)
[2020-01-13 12:23] VITALS: BP 108/63
--- NOTE | 2020-01-13 14:23 | NUR ---
RD FOLLOW UP Pt with Heart Healthy[facility] HTL diet order. Procalamine PPN at 45mls/hr (31gm Protein, 264 kcal per day). Pt reports improving appetite from 50-75% PO intake. Pt tolerated and was given ice cream to encourage PO intake. Recommend advance diet as tolerated/ Continue Heart Healthy [facility] Recommend discontinue PPN when consistent fair PO intake, when medically feasible. RD to continue to monitor. Please notify as additional nutrition concerns arise. Thank you. Addendum: 01/13/20 at [address] Amended: Links added.
[2020-01-13 16:26] VITALS: BP 119/70
[2020-01-13] MEDS ORDERED: CLINIMIX E 4.25%-5% SOLUTION 2,000 ML IV ONE (20:00)
[2020-01-13 20:06] VITALS: BP 107/62
[2020-01-13] MEDS: ATORVASTATIN CALCIUM 40 MG TABLET PO SCH (20:13)
[2020-01-13 23:53] VITALS: BP 102/54
[2020-01-14 03:49] VITALS: BP 110/52
[2020-01-14] MEDS: ASPIRIN 325MG EC TAB 325 MG TABLET.DR PO SCH (08:22)
[2020-01-14] MEDS: METOPROLOL TARTRATE 25 MG TAB PO SCH ×2 (08:22→21:36)
[2020-01-14] MEDS: FERROUS SULFATE 325 MG TABLET.DR PO SCH (08:22)
[2020-01-14] MEDS: FUROSEMIDE 20 MG TABLET PO SCH (08:22)
[2020-01-14] MEDS: TAMSULOSIN HCL 0.4 MG CAP.ER.24H PO SCH (08:22)
[2020-01-14] MEDS: CETIRIZINE HCL 5 MG TABLET PO SCH (08:22)
[2020-01-14] MEDS: CITALOPRAM 20 MG TABLET PO SCH (08:23)
--- NOTE | 2020-01-14 08:30 | NUR ---
DYSPHAGIA RE-EVAL COMPLETED. +S/S OF ASPIRATION AT THIS TIME. RECOMMEND THE CONTINUATION OF PUREED, HONEY THICK LIQUIDS, PILLS CRUSHED WITH PUDDING TOLERATED. POT ANNEALER COORDINATED WITH NURSE JOEY. PER NURSE, Pt WITH POOR P.O. INTAKE. Pt COMPLAINING OF FLAVOR IN FOOD NOT SPECIFICALLY FOOD TEXTURE. IF Pt CONTINUES WITH POOR P.O. INTAKE RECOMMEND SUPPLEMENTING WITH ALF ALTERNATE MEANS OF NUTRITION/HYDRATION. RECOMMEND THE CONTINUATION WITH SPEECH THERAPY TO ADDRESS SWALLOWING GOALS. RECOMMENDATIONS: DYSPHAGIA THERAPY 3-5XWEEK TO INCREASE ORAL MOTOR STRENGTH AND PHARYNGEAL SWALLOW: LTG#1: Pt WILL TOLERATE LEAST RESTRICTIVE DIET TO MEET NUTRITION/HYDRATION WITH NO S/S OF ASPIRATION. LTG#2: SKILLED EDUCATION Pt/FAMILY/STAFF STG#1: Pt WILL PARTICIPATE IN LARYNGEAL ELEVATION/EXCURSION EXERCISES WITH 80% ACCURACY. STG#2: Pt WILL PARTICIPATE IN TONGUE BASE RETRACTION EXERCISES WITH 80% ACCURACY. STG#3: Pt WILL PARTICIPATE IN ORAL MOTOR EXERCISES WITH 80% ACCURACY. STG#4: Pt WILL TOLERATE THERAPEUTIC TRIALS OF NECTAR THICK LIQUIDS WITH NO OVERT S/S OF ASPIRATION. STG#5: Pt WILL BE ABLE TO PARTICIPATE IN MBSS AFTER 2-4 WEEKS OF THERAPEUTIC INTERVENTION. STG#6: SKILLED EDUCATION Pt/FAMILY/STAFF. Addendum: 01/14/[address]ARGARITA BOOTH Amended: Links added.
[2020-01-14] MEDS ORDERED: ONDANSETRON HCL 4 MG/2 ML VIAL IVP PRN (09:00)
[2020-01-14 09:03] VITALS: BP 109/71
[2020-01-14 12:10] VITALS: BP 131/63
[2020-01-14 16:00] VITALS: BP 126/59
--- NOTE | 2020-01-14 16:59 | NUR ---
RD UPDATE Pt with altered taste. Pt with appetite, however dislikes food, states not enough flavor and altered taste since procedure. Pt likes snack foods like apple sauce and pudding and especially ice cream. Pt agree to try Vanilla Ensure (must be thickened and chilled). Recommend Snacks between meals Recommend Mashed potatoes with lunch and dinner Mrs. Braun seasoning packet with meals
[2020-01-14 20:37] VITALS: BP 124/61
[2020-01-14] MEDS: ATORVASTATIN CALCIUM 40 MG TABLET PO SCH (21:36)
[2020-01-14] MEDS ORDERED: CLINIMIX E 4.25%-5% SOLUTION 2,000 ML IV ONE (22:00)
[2020-01-14 23:40] VITALS: BP 131/67
[2020-01-15 03:34] VITALS: BP 132/67
[2020-01-15 08:15] VITALS: BP 132/65
[2020-01-15] MEDS: ASPIRIN 325MG EC TAB 325 MG TABLET.DR PO SCH (09:15)
[2020-01-15] MEDS: CETIRIZINE HCL 5 MG TABLET PO SCH (09:15)
[2020-01-15] MEDS: FUROSEMIDE 20 MG TABLET PO SCH (09:16)
[2020-01-15] MEDS: TAMSULOSIN HCL 0.4 MG CAP.ER.24H PO SCH (09:16)
[2020-01-15] MEDS: CITALOPRAM 20 MG TABLET PO SCH (09:16)
[2020-01-15] MEDS: METOPROLOL TARTRATE 25 MG TAB PO SCH ×2 (09:17→20:05)
[2020-01-15] MEDS: FERROUS SULFATE 325 MG TABLET.DR PO SCH (09:17)
[2020-01-15 11:34] VITALS: BP 107/59
[2020-01-15 16:00] VITALS: BP 131/59
--- NOTE | 2020-01-15 16:58 | NUR ---
RD UPDATE RD notification of NPO/Trigger. Possible error. Attempt to reach RN, transferred to ext. [phone], No answer. Recommend resume nutritional POC. Please contact RD ext. [phone] as concerns arise.
[2020-01-15 19:57] VITALS: BP 114/58
[2020-01-15] MEDS: ATORVASTATIN CALCIUM 40 MG TABLET PO SCH (20:04)
[2020-01-15] MEDS ORDERED: CLINIMIX E 4.25%-5% SOLUTION 2,000 ML IV ONE (21:00)
[2020-01-15 23:50] VITALS: BP 110/58
[2020-01-16 03:45] VITALS: BP 102/58
[2020-01-16 08:00] VITALS: BP 120/61
[2020-01-16] MEDS: TAMSULOSIN HCL 0.4 MG CAP.ER.24H PO SCH (08:43)
[2020-01-16] MEDS: FERROUS SULFATE 325 MG TABLET.DR PO SCH (08:43)
[2020-01-16] MEDS: ASPIRIN 325MG EC TAB 325 MG TABLET.DR PO SCH (08:43)
[2020-01-16] MEDS: CITALOPRAM 20 MG TABLET PO SCH (08:44)
[2020-01-16] MEDS: METOPROLOL TARTRATE 25 MG TAB PO SCH ×2 (08:45→21:41)
[2020-01-16] MEDS: FUROSEMIDE 20 MG TABLET PO SCH (08:46)
[2020-01-16] MEDS: CETIRIZINE HCL 5 MG TABLET PO SCH (08:46)
[2020-01-16 12:00] VITALS: BP 110/63
--- NOTE | 2020-01-16 13:51 | NUR ---
PT TOLERATED HIS CHOPPED DIET WITH NO CHOKING OR DIFFICULTY SWALLOWING, HE STATED HE JUST HAD TO SWALLOW SLOWLY AND CAREFULLY; HE ATE 75% OF TRAY; PRIOR HE WAS ON A PUREED DIET AND STATED HE COULD NOT STAND THE TASTE OF IT BEING SO BLAND AND TEXTURLESS THUS HE WAS CONSUMING VERY LITTLE AND NOT MEETING NUTRITIONAL REQUIREMENTS; I ASKED HIM ABOUT PLACING A PEG FEEDING TUBE FOR SUPPLEMENTAL NUTRITION AND HE STATED HE DID NOT WANT BECAUSE HE IS AT HOME ALONE MOST OF THE DAY AND HE WOULDN'T FEEL COMFORTABLE TAKING CARE OF IT AND HE DOESNT QUALIFY FOR HELP; WILL CONT TO MONITOR. PPN NUTRITION STOPPED THIS AM BY PREVIOUS NURSE KIRSTIE. DR KINGSLEY CONSULTED FOR GI EVALUATION.
[2020-01-16 16:00] VITALS: BP 114/64
--- NOTE | 2020-01-16 19:10 | NUR ---
Received report ,clinimix has been discontinued.patient already on a diet with crushed meds
[2020-01-16 19:58] VITALS: BP 110/58
[2020-01-16] MEDS: ATORVASTATIN CALCIUM 40 MG TABLET PO SCH (21:41)
[2020-01-16 23:38] VITALS: BP 109/59
[2020-01-17 04:03] VITALS: BP 118/54
[2020-01-17 08:00] VITALS: BP 102/42
[2020-01-17] MEDS: CITALOPRAM 20 MG TABLET PO SCH (09:41)
[2020-01-17] MEDS: METOPROLOL TARTRATE 25 MG TAB PO SCH ×2 (09:41→20:50)
[2020-01-17] MEDS: TAMSULOSIN HCL 0.4 MG CAP.ER.24H PO SCH (09:43)
[2020-01-17] MEDS: CETIRIZINE HCL 5 MG TABLET PO SCH (09:44)
[2020-01-17] MEDS: ASPIRIN 325MG EC TAB 325 MG TABLET.DR PO SCH (09:44)
[2020-01-17] MEDS: FUROSEMIDE 20 MG TABLET PO SCH (09:44)
[2020-01-17] MEDS: FERROUS SULFATE 325 MG TABLET.DR PO SCH (09:44)
[2020-01-17 12:00] VITALS: BP 109/54
[2020-01-17 16:00] VITALS: BP 124/64
[2020-01-17 20:08] VITALS: BP 118/58
[2020-01-17] MEDS: ATORVASTATIN CALCIUM 40 MG TABLET PO SCH (20:50)
--- NOTE | 2020-01-17 21:00 | NUR ---
Patient instructed on bladder training and clamped larkin at this time.
[2020-01-17 23:38] VITALS: BP 109/54
--- NOTE | 2020-01-18 01:00 | NUR ---
Patient asleep does not feel the urge to void,unclamped larkin at this time
[2020-01-18 04:11] VITALS: BP 109/49
--- NOTE | 2020-01-18 06:21 | NUR ---
Patient is awake watching TV reminded to use call light if ever feel the urge to void .Domingo clamped at this time.
[2020-01-18 07:54] VITALS: BP 132/72
[2020-01-18 08:14] VITALS: BP 110/57
[2020-01-18] MEDS: TAMSULOSIN HCL 0.4 MG CAP.ER.24H PO SCH (08:38)
[2020-01-18] MEDS: METOPROLOL TARTRATE 25 MG TAB PO SCH (08:39)
[2020-01-18] MEDS: FUROSEMIDE 20 MG TABLET PO SCH (08:39)
[2020-01-18] MEDS: CITALOPRAM 20 MG TABLET PO SCH (08:39)
[2020-01-18] MEDS: ASPIRIN 325MG EC TAB 325 MG TABLET.DR PO SCH (08:39)
[2020-01-18] MEDS: FERROUS SULFATE 325 MG TABLET.DR PO SCH (08:39)
[2020-01-18] MEDS: CETIRIZINE HCL 5 MG TABLET PO SCH (08:40)
--- NOTE | 2020-01-18 10:50 | NUR ---
DYSPHAGIA EVAL COMPLETED. S/S OF ASPIRATION AT THIS TIME. RECOMMEND MECHANICAL SOFT/GROUND SOLIDS, THIN LIQUIDS, AND PILLS CRUSHED WITH APPLESAUCE TOLERATED. Pt DOWNGRADED TO MECHANICAL SOFT/GROUND DUE TO MISSING DENTURES. X RAY CONTROL EQUIPMENT REPAIRER EDUCATED Pt ON RISKS AND CONSEQUENCES OF ASPIRATION. ALL QUESTIONS ANSWERED AT THIS TIME. X RAY CONTROL EQUIPMENT REPAIRER COORDINATED WITH NURSE YEUNG. Addendum: 01/18/[address]ARGARITA BOOTH Amended: Links added.
[2020-01-18] MEDS ORDERED: ASPI-891 PO (11:21)
[2020-01-18] MEDS ORDERED: TAMS-1 PO (11:21)
[2020-01-18 11:33] VITALS: BP 103/54
--- NOTE | 2020-01-18 14:35 | NUR ---
HL REMOVED, CATHETER INTACT. F/C CHANGED TO LEG BAG FOR DISCHARGE. DISCHARGE INSTRUCTIONS GIVEN, VERBALIZED UNDERSTANDING.
--- NOTE | 2020-01-18 17:21 | NUR ---
CALLED PT.'S DAUGHTER, EMILIE OSUNA PER HER REQUEST, AND INFORMED OF PT.'S DISCHARGE INSTRUCTIONS; VERBALIZED UNDERSTANDING.
[2020-03-16] MEDS ORDERED: LEVO500T89 PO (12:06)
[2020-03-16] MEDS ORDERED: TAMS-1 PO (12:06)
== END 2020-01-18 17:00 | disposition home or self-care (01) | DRG 38 ==
LOC: EDSTATUS 11:00 → DAHIP 01-05 09:02 → 4BH 01-05 20:50 → 4DH 01-06 09:32 → DAHIP 01-08 13:16 → 4DH 01-09 18:02
PROVIDERS: ADMIT Thoracic Surgery (Cardiothoracic Vascular Surgery); ATTEND Thoracic Surgery (Cardiothoracic Vascular Surgery)
PROC: 03CK0ZZ Extirpation of Matter from Right Internal Carotid Artery, Open Approach (ICD-10-PCS; 2020-01-05)
PROC: 03CH0ZZ Extirpation of Matter from Right Common Carotid Artery, Open Approach (ICD-10-PCS; principal; 2020-01-05 13:20)
PROC: 0W960ZZ Drainage of Neck, Open Approach (ICD-10-PCS; 2020-01-08)
PROC: 0JC40ZZ Extirpation of Matter from Right Neck Subcutaneous Tissue and Fascia, Open Approach (ICD-10-PCS; 2020-01-08)
DX: I65.21 Occlusion and stenosis of right carotid artery (principal); D62 Acute posthemorrhagic anemia; R13.10 Dysphagia, unspecified; E78.00 Pure hypercholesterolemia, unspecified; I25.10 Atherosclerotic heart disease of native coronary artery without angina pectoris; E78.5 Hyperlipidemia, unspecified; S10.93XA Contusion of unspecified part of neck, initial encounter; N40.1 Benign prostatic hyperplasia with lower urinary tract symptoms; R33.8 Other retention of urine; I73.9 Peripheral vascular disease, unspecified; I10 Essential (primary) hypertension; Z79.899 Other long term (current) drug therapy
CPT/HCPCS: 36415; 70490; 71045; 76536; 80048; 80053; 82948; 83036; 85025; 85027; 85610; 85730; 86850; 86900; 86901; 86922; 88304; 88311; 92526; 92610; 93005; 93880; 97039; A4344; A4606; G0378; J0330; J0690; J0697; J1100; J1644; J1885; J2001; J2250; J2405; J2704; J2710; J3010; J3490; J7030; J7120

== ENCOUNTER 2020-01-29 23:25 | Emergency (ER) | payer OTHER | END 2020-01-30 02:22 | disposition home or self-care (01) | LOC: EDH 23:25 | DX: R33.9 Retention of urine, unspecified (principal); I10 Essential (primary) hypertension; Z87.891 Personal history of nicotine dependence ==

== ENCOUNTER → 2020-03-11 | Outpatient (CLI) | payer OTHER ==
[~2020-03-11] VITALS: Ht 165.1 cm; Wt 59.9 kg
[~2020-03-11] MED LIST changes: -ASPI-556 PO; +ASPI-891 PO; +CEFTRIAXONE SODIUM 1 GM IVP SCH; +CETI10TA57 PO; -CITA10TA7 PO; -CLOP75TA32 PO; +ESCI5TAB10 PO; +FERS325 PO; +FURO20TA4 PO; -ISOS30TA6 PO; +LEVO500T89 PO; +LISI2.5T2 PO; +METO25TA6 PO
[2020-03-11 13:44] LABS: EOSINOPHILS % (AUTO) 4.1 % (0.0-8.0); HEMATOCRIT 42.7 % (42-54); LYMPHOCYTES % (AUTO) 21.8 % (21.0-51.0); MEAN CORPUSCULAR HEMOGLOBIN 28.1 pg (27.0-33.0); MEAN CORPUSCULAR HGB CONC 31.4 g/dL (32.0-36.0); MEAN CORPUSCULAR VOLUME 89.5 fL (79-99); MONOCYTES % (AUTO) 6.3 % (3.0-13.0); NEUTROPHILS % (AUTO) 66.4 % (40.0-77.0); PLATELET COUNT (AUTO) 331 K/uL (130-400); RED BLOOD CELL COUNT(AUTO) 4.77 MIL/uL (4.50-6.20); WHITE BLOOD COUNT (AUTO) 9.8 K/uL (4.8-10.8)
[2020-03-11 13:55] LABS: INR 0.99 (0.85-1.15); PARTIAL THROMBOPLASTIN TIME 28.4 SEC (26.3-35.5); PROTHROMBIN TIME 10.7 SEC (9.6-11.6)
[2020-03-11 13:59] LABS: BILIRUBIN,URINE Negative (NEGATIVE); COLOR,URINE Yellow (YELLOW); GLUCOSE, URINE (UA) Negative (NEGATIVE); KETONES,URINE Negative (NEGATIVE); LEUKOCYTE ESTERASE ,URINE Moderate (NEGATIVE); NITRATE,URINE Positive (NEGATIVE); OCCULT BLOOD,URINE Moderate (NEGATIVE); PROTEIN,URINE Negative (NEGATIVE); UROBILINOGEN,URINE 0.2 mg/dL (0.2-1.0)
[2020-03-11 14:00] LABS: APPEARANCE,URINE SLIGHTLY CLOUDY (CLEAR); CREATININE 0.9 mg/dL (0.5-1.5); POTASSIUM 4.4 mmol/L (3.5-5.1)
[2020-03-11 14:18] LABS: BACTERIA,URINE Few /HPF (None Seen)
--- NOTE | 2020-03-16 10:30 | NUR ---
report called dr méndez office and spoke to argelia. informed her of urine results. pt was given one gram of rocephin on the at md office so md will proceed with surgery
--- NOTE | 2020-03-16 10:30 | NUR ---
RE: ABNORMAL URINE CULTURE FAXED URINALYSIS AND CULTURE SUSCEPTIBILITIES REPORT TO DR LOPEZ'S OFFICE FOR REVIEW, WILL WAIT FOR ANY NEW ORDERS/RESPONSE FROM DR LOPEZ.
[2020-03-16 11:19] VITALS: BP 119/54
== END ==
LOC: DAH 10:00 → EDSTATUS 13:45
PROVIDERS: ATTEND Urology
DX: Z01.818 Encounter for other preprocedural examination (principal); R33.9 Retention of urine, unspecified; N40.1 Benign prostatic hyperplasia with lower urinary tract symptoms; Z11.59 Encounter for screening for other viral diseases; Z79.01 Long term (current) use of anticoagulants
CPT/HCPCS: 36415; 71045; 80048; 81001; 85025; 85610; 85730; 87077; 87088; 87186; 93005; A6260; U0003

== ENCOUNTER 2020-04-12 06:58 | Day surgery (SDC) | payer OTHER ==
[2020-04-06 11:56] LABS: BASOPHILS % (AUTO) 1.1 % (0.0-5.0); EOSINOPHILS % (AUTO) 4.8 % (0.0-8.0); HEMATOCRIT 48.6 % (42-54); LYMPHOCYTES % (AUTO) 22.8 % (21.0-51.0); MEAN CORPUSCULAR HEMOGLOBIN 27.7 pg (27.0-33.0); MEAN CORPUSCULAR HGB CONC 31.9 g/dL (32.0-36.0); MEAN CORPUSCULAR VOLUME 86.9 fL (79-99); MONOCYTES % (AUTO) 8.5 % (3.0-13.0); NEUTROPHILS % (AUTO) 62.5 % (40.0-77.0); PLATELET COUNT (AUTO) 176 K/uL (130-400); RED BLOOD CELL COUNT(AUTO) 5.59 MIL/uL (4.50-6.20); RED CELL DISTRIBUTION WIDTH 15.6 % (11.0-15.5); WHITE BLOOD COUNT (AUTO) 8.7 K/uL (4.8-10.8)
[2020-04-06 12:11] LABS: CREATININE 0.9 mg/dL (0.5-1.5); POTASSIUM 4.6 mmol/L (3.5-5.1)
[2020-04-06 12:17] LABS: APPEARANCE,URINE Clear (CLEAR); BILIRUBIN,URINE Negative (NEGATIVE); COLOR,URINE Yellow (YELLOW); GLUCOSE, URINE (UA) Negative (NEGATIVE); KETONES,URINE Negative (NEGATIVE); LEUKOCYTE ESTERASE ,URINE Large (NEGATIVE); NITRATE,URINE Negative (NEGATIVE); OCCULT BLOOD,URINE Small (NEGATIVE); PH,URINE 5.5 (5.0-8.0); PROTEIN,URINE Negative (NEGATIVE); UROBILINOGEN,URINE 0.2 mg/dL (0.2-1.0)
[2020-04-06 12:19] LABS: INR 0.95 (0.85-1.15); PARTIAL THROMBOPLASTIN TIME 29.6 SEC (26.3-35.5); PROTHROMBIN TIME 10.3 SEC (9.6-11.6)
[2020-04-06 12:25] LABS: RBC,URINE 0-1 /HPF (0-1)
[2020-04-06 12:26] LABS: BACTERIA,URINE Few /HPF (None Seen)
[2020-04-06 12:27] LABS: SQUAMOUS EPITHELIAL CELL,UR Rare /HPF (0-2)
[2020-04-08 09:10] VITALS: BP 170/79
--- NOTE | 2020-04-11 10:38 | NUR ---
as per dr. acuna ekg ok no new orders.
[2020-04-12] VITALS (21 sets, daily range): BP systolic 114–159; BP diastolic 51–74
[~2020-04-12] VITALS: Ht 162.6 cm; Wt 59.5 kg
[2020-04-12] MEDS ORDERED: LACTATED RINGERS 1000ML 1,000 ML IV ONE (07:18)
[2020-04-12] MEDS ORDERED: GENTAMICIN SULFATE 320 MG in SODIUM CHLORIDE 0.9% 100 ML IV SCH (07:45)
--- NOTE | 2020-04-12 08:02 | NUR ---
PT PRE-OP CARE DONE. PT ARRIVED WITH A 18F LOMELI CATH PRESENT THAT WAS CHANGED "LAST MONTH". IT IS CONNECTED TO A LEG BAG. URINE IS CLEAR YELLOW.
[2020-04-12] MEDS ORDERED: FENTANYL CITRATE PF 50 MCG/1 ML 2ML VIAL ONE (08:22)
[2020-04-12] MEDS ORDERED: SUCCINYLCHOLINE 200MG/10ML SYR ONE (08:22)
[2020-04-12] MEDS ORDERED: ROCURONIUM 10MG/1ML SYR 10 MG/ML ML ONE (08:22)
[2020-04-12] MEDS ORDERED: PROPOFOL 10 MG/ML 20ML VIAL IV ONE (08:22)
[2020-04-12] MEDS ORDERED: LIDOCAINE PF 2% 5ML ABBOJECT ONE (08:22)
[2020-04-12] MEDS ORDERED: MEROPENEM 1 GM VIAL ONE (08:28)
[2020-04-12] MEDS: MEROPENEM 1 GM VIAL IVP SCH ×2 (08:43→08:45)
[2020-04-12] MEDS ORDERED: MEROPENEM 500 MG VIAL IVP SCH (08:45)
[2020-04-12] MEDS ORDERED: EPHEDRINE SULFATE 50 MG/ML AMPULE ONE (09:01)
[2020-04-12] MEDS ORDERED: GLYCOPYRROLATE 1 MG/5 ML SYRINGE ONE (09:49)
[2020-04-12] MEDS ORDERED: NEOSTIGMINE 5MG/5ML SYR IV ONE (09:55)
--- NOTE | 2020-04-12 11:20 | NUR ---
POST OP RECEIVED PT POST OP FROM ARLEEN TERRY RN FROM PACU. PT IN NO DISTRESS WITH CBI RUNNING. PT HAS NEW BAG AND LOMELI BAG WITH CLEAR URINE THAT CHANGED TO PINKISH SOON I CLAMPED CBI. WILL CONTINUE TO RUN CBI. PT HAS TRACTION TO LOMELI CATH. WILL CONTINUE TO MONITOR PT. PT ORIENTED TO ROOM AND CALL LIGHT
--- NOTE | 2020-04-12 12:15 | NUR ---
report asked dr ramires if he wanted traction to bladder as per md irving to release and only apply light traction. traction to site released and light traction applied. pt tolerated it well.
--- NOTE | 2020-04-12 12:30 | NUR ---
report called dr ramires and reported on bright red urine. received instructions to send pt home but if blood clots noted for pt to call md office or come to er. pt informed and voiced understanding
--- NOTE | 2020-04-12 12:58 | NUR ---
pt status pt larkin bag changed to leg bag. pt urine output still bright red. pt was instructed to call md if bleeding gets worst or if blood clots noted. pt voiced understanding. pt and daughter were given instructions on how to change larkin bag. daughter voiced understanding
--- NOTE | 2020-04-12 13:00 | NUR ---
discharge instructions given to pt and daughter. both voiced understanding. pt taken out via w/c by kenney isaacs.
== END 2020-04-12 13:00 | disposition home or self-care (01) ==
LOC: DAH 06:58
PROVIDERS: ATTEND Urology
DX: N40.1 Benign prostatic hyperplasia with lower urinary tract symptoms (principal); N39.498 Other specified urinary incontinence; R33.8 Other retention of urine; I10 Essential (primary) hypertension; E11.51 Type 2 diabetes mellitus with diabetic peripheral angiopathy without gangrene; I49.1 Atrial premature depolarization; I25.2 Old myocardial infarction; F17.200 Nicotine dependence, unspecified, uncomplicated; E78.5 Hyperlipidemia, unspecified; I25.10 Atherosclerotic heart disease of native coronary artery without angina pectoris; Z95.5 Presence of coronary angioplasty implant and graft; Z79.01 Long term (current) use of anticoagulants; Z98.41 Cataract extraction status, right eye; Z11.59 Encounter for screening for other viral diseases; Z95.1 Presence of aortocoronary bypass graft
CPT/HCPCS: 36415; 52648; 71045; 80048; 81001; 85025; 85610; 85730; 87077 ×2; 87088; 87186 ×2; 93005; A4215; A4221; A4222; A4223; A4354; A4358; A4600; A4663; A4930; A6260; C1758; C9803; J0330; J1580; J2001; J2185; J2704; J2710; J3010; J3490 ×2; J7030; J7120 ×2; U0003

== ENCOUNTER → 2021-08-10 | Outpatient (CLI) | payer OTHER ==
[~2021-08-10] MED LIST changes: -CEFTRIAXONE SODIUM 1 GM IVP SCH; -ESCI5TAB10 PO; +ESCI5TAB16 PO; -LEVO500T89 PO; +LEVO500T90 PO; +LISI2.5T13 PO; -LISI2.5T2 PO
== END | disposition home or self-care (01) ==
LOC: OIH 09:33
PROVIDERS: ATTEND Internal Medicine Cardiovascular Disease
DX: I73.9 Peripheral vascular disease, unspecified (principal); I65.23 Occlusion and stenosis of bilateral carotid arteries; I51.7 Cardiomegaly; E78.5 Hyperlipidemia, unspecified; Z95.1 Presence of aortocoronary bypass graft; Z98.890 Other specified postprocedural states
CPT/HCPCS: 93306; 93356; 93880; 93925